=== PATIENT | female | born 1985 | race Caucasian/White ===

== ENCOUNTER → 2016-12-07 | Outpatient (CLI) | payer OTHER ==
--- NOTE | 2016-12-07 14:24 | US ---
December 07, [address] Wang, Thank you for requesting consultation and a detailed obstetrical ultrasound for Mrs. Bryon bunchar y to an abnormal Quad screen that increased her risk for Trisomy 21 to 1 in 38. As you know, Becca akers is a 31 year old G 4, P 3003 . Her due date is 04/24/17 by ultrasound. Her current gestational a ge based on this dating is 20 weeks 2 days. She had a follow up screening test by cell free DN A that had too low a fraction for the evaluation. She would like to discuss definitive genetic diagnosis as she would consider an interruption of should the diagnosis be confirmed. ULTRASOUND Number of fetuses: 1 Placental location: Posterior; no evidence of previa Placental cord insertion: Intraplacental presentation: Transverse Cervix: 3.6 cm viewed transabdominally Maximum Vertical Pocket: 4.2 cm The adnexa were evaluated. No pathology was seen. Right ovary is visualized and appears normal. It measures 2.9 x 2.0 x 2.0 cm. Left ovary is visualized and appears normal. It measures 2.2 x 1.4 x 1.9 cm. MEASUREMENTS: Biparietal diameter: 48 mm 20 weeks, 4 days Head circumference: 176 mm 20 weeks, 1 days Abdominal circumference: 168 mm 21 weeks, 6 days Femur length: 31 mm 19 weeks, 6 days Humerus length: 30 mm 20 weeks, 0 days Transcerebellar diameter: 21 mm 20 weeks, 0 days Average ultrasound age: 20 weeks, 5 days Estimated weight: 377 gm weight percentile: 73% ANATOMY Supratentorial brain: Normal including views of the falx, cavum septum pellucidum and choroids Lateral Ventricle: Normal, measuring 5.1 mm Posterior fossa: Normal including the cerebellum and cisterna magna Spine: Normal Nuchal fold: 4.4 mm normal Face: Normal views of the lip and nose area Profile: Normal Palate: Normal appearance of the alveolar ridge Cardiac Exam: Four chamber view of the heart: Normal including intraventricular septum Left Ventricular Outflow Tract: Normal Right Ventricular Outflow Tract: Normal 3 Vessel View: Normal Tracheal View: Normal Aortic Arch: Normal Ductal Arch: Normal SVC/IVC: Normal Heart Rate: 152 bpm Diaphragm: No overt abnormalities have been detected Stomach: Normal Umbilical cord insertion: Normal Right kidney: Normal Left kidney: Normal Bladder: Normal Number of cord vessels: Three Upper extremities: Normal including the number, and architecture Lower extremities: Normal including the number and architecture Gender: Male TRISOMY 21 MARKERS Nuchal fold: 4.4 mm Nasal bone: 7.0 mm Echogenic Bowel: No Femur Lengths Shortened: No Humerus Lengths Shortened: No Pyelectasis: No EIF Present: No AMNIOCENTESIS 1. Informed consent was obtained prior to the procedure which included a discussion of the risks, be nefits, alternatives and limitations of the information received. 2. Abdomen was prepped with an iodine prep solution. 3. Under direct ultrasound guidance, a 20 gauge spinal needle was introduced into the amniotic fluid to withdraw 20 cc of straw colored fluid. 4. No complications occurred during the procedure and cardiac activity was observed post proce dure at the rate of 152 bpm. 5. Your patient tolerated the procedure very well. Her blood type is A NEGATIVE, and therefore DID require Rhogam. 6. Amniotic Fluid was sent for FISH (13, 18, 21, X and Y), amniotic fluid AFP, and karyotype. Resul ts should be available in 2-3 days for the FISH studies and 10-14 days thereafter for the final chrom osome results. IMPRESSION: 1. Intrauterine at 20 w 2 d, FELICITY of 04/24/17. This is consistent with her previously esta blished dates. 2. Today's sonogram reveals a normal appearing fetus. There were no sonographic markers worrisome f or Trisomy 21. 3. Cervical length measures 3.6 cm, and is without evidence of insufficiency. 4. s/p uncomplicated genetic amniocentesis 5. Rh negative; Rhogam administered by lab today. RECOMMENDATIONS: I was pleased to review today's ultrasound with your patient. I have reassured her that the gr owth and amniotic fluid volume are appropriate for this gestational age. The detailed anatomic surve y including sonographic markers for Down Syndrome did not reveal any overt abnormalities. Nato buckner is aware that ultrasound is a screening tool and cannot provide definitive genetic diagnosis. Should she desire definitive genetic diagnosis, she would need to have a genetic amniocentesis perfo rmed. She is also aware that up to 50% of the children who have Trisomy 21 may not have any sonograp hically worrisome findings. After our discussion, she chose to pursue definitive diagnosis by amnioc entesis. This occurred without complication. Our office will call as results become available and f orward the reports to your office. Future ultrasound and consultation is left to your clinical discretion Future ultrasound and consultation is left to your clinical discretion. Thank you for allowing me the opportunity to consult and evaluate your patient. Should you have any questions or concerns please do not hesitate to contact me. This visit was approximately 45 minutes in length with 30 minutes spent in direct face to face consultation reviewing aneuploidy screening ve rsus definitive genetic diagnosis. Sincerely, Ginger Caldwell MD [facility] Department of Obstetrics & Gynecology [facility]
--- NOTE | 2016-12-07 15:07 | US ---
Ultrasound Obstetric Detailed Evaluation Indication: Abnormal quad screen. The estimated gestational age by LMP is 20 weeks and 2 days yield ing an EDC of April 24, 2017. Comparison: None. Findings: Number: 1 Presentation: Transverse Placental Location: Posterior without previa Cervix: 3.6 cm MVP: 4.2 cm Heart Rate: 152 bpm. Right ovary measures 2.8 x 2 x 2 cm. Left ovary measures 2.2 x 1.9 x 1.4 cm. Biometry: Biparietal Diameter: 48.07 mm 20 weeks, 4 days Head Circumference: 175.88 mm 20 weeks, 1 days Abdominal Circumference: 167.67 mm 21 weeks, 6 days Femur Length: 31.49 mm 19 weeks, 6 days Humerus Length: 30.24 mm 20 weeks, 0 days Transcerebellar Diameter: 21.05 mm 20 weeks, 0 days HC/AC: 1.05 (1.09 - 1.26) FL/BPD: 66% FL/AC: 19% Average Ultrasound Age: 20 weeks, 5 days EDC Based on Today's Average Ultrasound Age: April 21, 2017 Estimated weight is 377 gms +/- 55 gms. The estimated weight is at the 73 % based on previous dating. ANATOMY SURVEY: Supratentorial Brain: Normal Posterior Fossa: Normal Spine: Normal Nuchal fold: Normal Nose and Lips: Normal Facial Profile: Normal Heart: Four chamber heart. 152 bpm. Intact intraventricular septum. Cardiac Outflow Tracts: Normal crossing Stomach: Normal Umbilical Cord Insertion: Normal Kidneys: Normal, no pyelectasis Bladder: Normal Number of Cord Vessels: Three Upper Extremities: Visualized Lower Extremities: Visualized. Impression: 1. Living burris in transverse presentation. 2. Size concordant with dates. 3. No overt anomalies detected. 4. Please see Dr. Ginger Caldwell consult and recommendations.
[2016-12-11 08:32] LABS: INTERPRETATION See Comments (()); PAD FISH RESULT SUMMARY Normal (())
[2016-12-11 14:10] LABS: GA USED Scan estimate (()); GENERAL TEST INFO See Comments (()); INTERPRETATION See Comments (())
[2016-12-15 16:02] LABS: BANDING METHODS See Comments (()); INTERPRETATION See Comments (())
== END ==
LOC: FIMAGING 09:29
PROVIDERS: ATTEND Obstetrics & Gynecology
DX: O35.1XX1 Maternal care for (suspected) chromosomal abnormality in fetus, fetus 1 (principal); Z3A.20 20 weeks gestation of pregnancy
CPT/HCPCS: 82106-90; 88291-90